=== PATIENT | male | born 1990 | race Caucasian/White ===

== ENCOUNTER 2018-09-29 11:26 | Inpatient (IN) | payer MEDICAID ==
[~2018-09-29] VITALS: Ht 182.9 cm; Wt 79.4 kg
[2018-09-29] MEDS ORDERED: DIVA250T45 PO (11:57)
[2018-09-29] MEDS ORDERED: HALO1 PO (11:57)
[2018-09-29 12:18] LABS: BASOPHILS % (AUTO) 0.6 % (0.0-2.0); EOSINOPHILS % (AUTO) 0.3 % (1.0-6.0); HEMATOCRIT 40.8 % (41-53); HEMOGLOBIN 14.1 g/dL (13.5-17.5); LYMPHOCYTES # (AUTO) 1.7 K/uL (1.0-4.8); LYMPHOCYTES % (AUTO) 18.8 % (22.0-44.0); MEAN CORPUSCULAR HEMOGLOBIN 30.7 pg (26.0-34.0); MEAN CORPUSCULAR HGB CONC 34.7 G/dL (31.0-37.0); MEAN CORPUSCULAR VOLUME 89 fL (80-100); MONOCYTES # (AUTO) 1.3 K/uL (0.1-1.0); MONOCYTES % (AUTO) 13.8 % (2.0-9.0); NEUTROPHILS # (AUTO) 6.1 K/uL (1.8-7.7); NEUTROPHILS % (AUTO) 66.5 % (40.0-70.0); PLATELET COUNT (AUTO) 184 K/uL (150-450); RED CELL DISTRIBUTION WIDTH 13.4 % (11.5-14.5)
[2018-09-29] MEDS ORDERED: DiphenhydrAMINE HCL 50 MG/ML VIAL ONE (12:19)
[2018-09-29] MEDS ORDERED: LORazepam 2 MG/ML VIAL ONE (12:19)
[2018-09-29] MEDS ORDERED: HALOPERIDOL LACTATE 5 MG/ML VIAL ONE (12:19)
[2018-09-29 12:24] LABS: ANION GAP 10 mmol/L (8-16); CALCIUM, TOTAL 8.8 mg/dL (8.8-10.5); CARBON DIOXIDE 27 mmol/L (22-29); CHLORIDE 106 mmol/L (98-107); CREATININE 0.83 mg/dL (0.60-1.30); GLOMERULAR FILTR. RATE CALC > 60 mL/min (>60); GLUCOSE,RANDOM 83 mg/dL (70-110); POTASSIUM 4.1 mmol/L (3.5-5.1); SODIUM SERUM 143 mmol/L (136-145); UREA NITROGEN, BLOOD 17 mg/dL (7-18)
[2018-09-29 12:29] LABS: ALANINE AMINOTRANSFERASE 41 U/L (12-78); ALBUMIN 3.9 g/dL (3.4-5.0); ALKALINE PHOSPHATASE 60 U/L (46-116); ASPARTATE AMINOTRANSFERASE 28 U/L (15-37); BILIRUBIN,TOTAL 0.6 mg/dL (0.1-1.0); TOTAL PROTEIN, SERUM 7.3 g/dL (6.4-8.2)
[2018-09-29] MEDS ORDERED: HALOPERIDOL LACTATE 5 MG/ML VIAL IM ONE (12:30)
[2018-09-29] MEDS ORDERED: LORazepam 2 MG/ML VIAL IM ONE (12:30)
[2018-09-29] MEDS ORDERED: DiphenhydrAMINE HCL 50 MG/ML VIAL IM ONE (12:30)
[2018-09-29] MEDS ORDERED: IBUPROFEN 400 MG TABLET PO PRN (14:15)
[2018-09-29] MEDS ORDERED: ACETAMINOPHEN 325 MG TABLET PO PRN (14:15)
[2018-09-29] MEDS: HALOPERIDOL 5 MG TABLET PO PRN (16:54)
[2018-09-29] MEDS: LORazepam 2 MG TABLET PO PRN (16:54)
[2018-09-29 16:57] VITALS: BP 110/75
[2018-09-29] MEDS ORDERED: NICOTINE 14 MG/24 HOUR PATCH TD PRN (17:45)
[2018-09-29] MEDS ORDERED: MAG HYDROX/AL HYDROX/SIMETH ES 30 ML SUSPENSION UDCUP PO PRN (17:45)
[2018-09-29] MEDS ORDERED: CloNIDine HCL 0.1 MG TABLET PO PRN (17:45)
[2018-09-29] MEDS ORDERED: MAGNESIUM HYDROXIDE SUSPENSION 30 ML UDCUP PO PRN (17:45)
[2018-09-29] MEDS ORDERED: DOCUSATE SODIUM 100 MG CAPSULE PO PRN (17:45)
[2018-09-29] MEDS ORDERED: ONDANSETRON HCL 4 MG TABLET PO PRN (17:45)
[2018-09-29] MEDS ORDERED: ALBUTEROL SULFATE HFA 90 MCG/PUFF 8 GM INHALER IH PRN (17:45)
[2018-09-29] MEDS ORDERED: GuaiFENesin/D-METHORPHAN [SUGAR-FREE] 200-20MG/10 ML SYRUP UDCUP PO PRN (17:45)
[2018-09-29] MEDS ORDERED: LOPERAMIDE HCL 2 MG CAPSULE PO PRN (17:45)
[2018-09-29] MEDS ORDERED: PETROLATUM,WHITE 71 GM JELLY TP PRN (17:45)
[2018-09-30 01:21] VITALS: BP 118/73
[2018-09-30 08:11] VITALS: BP 117/74
[2018-09-30 08:35] LABS: BASOPHILS % (AUTO) 0.7 % (0.0-2.0); EOSINOPHILS % (AUTO) 2.1 % (1.0-6.0); HEMATOCRIT 43.5 % (41-53); HEMOGLOBIN 15.1 g/dL (13.5-17.5); LYMPHOCYTES # (AUTO) 1.5 K/uL (1.0-4.8); LYMPHOCYTES % (AUTO) 24.8 % (22.0-44.0); MEAN CORPUSCULAR HEMOGLOBIN 30.9 pg (26.0-34.0); MEAN CORPUSCULAR HGB CONC 34.6 G/dL (31.0-37.0); MEAN CORPUSCULAR VOLUME 89 fL (80-100); MONOCYTES # (AUTO) 0.8 K/uL (0.1-1.0); MONOCYTES % (AUTO) 13.1 % (2.0-9.0); NEUTROPHILS # (AUTO) 3.6 K/uL (1.8-7.7); NEUTROPHILS % (AUTO) 59.3 % (40.0-70.0); PLATELET COUNT (AUTO) 150 K/uL (150-450); RED BLOOD CELL COUNT(AUTO) 4.88 MIL/uL (4.50-5.90); RED CELL DISTRIBUTION WIDTH 13.4 % (11.5-14.5)
[2018-09-30 08:43] LABS: HEMOGLOBIN A1C 4.9 % (4.5-6.2)
[2018-09-30 09:27] LABS: ALANINE AMINOTRANSFERASE 48 U/L (12-78); ALBUMIN 4.1 g/dL (3.4-5.0); ALKALINE PHOSPHATASE 64 U/L (46-116); ANION GAP 6 mmol/L (8-16); ASPARTATE AMINOTRANSFERASE 58 U/L (15-37); BILIRUBIN,TOTAL 0.4 mg/dL (0.1-1.0); CALCIUM, TOTAL 9.3 mg/dL (8.8-10.5); CARBON DIOXIDE 30 mmol/L (22-29); CHLORIDE 105 mmol/L (98-107); CHOL/HDL RATIO 2.1 (4.2-7.3); CHOLESTEROL 150 mg/dL (131-200); CREATININE 0.84 mg/dL (0.60-1.30); GLOMERULAR FILTR. RATE CALC > 60 mL/min (>60); GLUCOSE,RANDOM 99 mg/dL (70-110); HDL CHOLESTEROL 72 mg/dL (40-60); LDL CHOL (CALC.) 63 mg/dL (0-130); POTASSIUM 4.8 mmol/L (3.5-5.1); SODIUM SERUM 141 mmol/L (136-145); THYROID STIMULATING HORMONE 2.23 uIU/mL (0.36-3.74); TOTAL PROTEIN, SERUM 7.5 g/dL (6.4-8.2); TRIGLYCERIDES 73 mg/dL (15-150); UREA NITROGEN, BLOOD 19 mg/dL (7-18)
[2018-09-30] MEDS: OLANZapine 5 MG TABLET PO SCH ×2 (10:15→20:21)
[2018-09-30] MEDS: DIVALPROEX SODIUM 500 MG DR TABLET PO SCH ×2 (10:15→20:21)
[2018-09-30] MEDS: LORazepam 2 MG TABLET PO PRN ×2 (11:02→17:28)
[2018-09-30] MEDS: HALOPERIDOL 5 MG TABLET PO PRN ×2 (11:02→17:28)
[2018-09-30 16:00] VITALS: BP 112/66
[2018-09-30] MEDS: ZOLPIDEM TARTRATE 10 MG TABLET PO PRN (22:41)
[2018-10-01 01:34] VITALS: BP 117/73
[2018-10-01 08:06] VITALS: BP 118/63
[2018-10-01] MEDS: OLANZapine 5 MG TABLET PO SCH ×2 (08:45→20:50)
[2018-10-01] MEDS: LORazepam 2 MG TABLET PO PRN ×3 (08:45→20:50)
[2018-10-01] MEDS: DIVALPROEX SODIUM 500 MG DR TABLET PO SCH ×2 (08:45→20:50)
[2018-10-01] MEDS: HALOPERIDOL 5 MG TABLET PO PRN (16:11)
[2018-10-01 17:09] VITALS: BP 112/61
[2018-10-01] MEDS: ZOLPIDEM TARTRATE 10 MG TABLET PO PRN (20:50)
[2018-10-02 03:05] VITALS: BP 111/73
[2018-10-02 08:00] VITALS: BP 134/80
[2018-10-02] MEDS: OLANZapine 5 MG TABLET PO SCH ×2 (08:39→20:12)
[2018-10-02] MEDS: LORazepam 2 MG TABLET PO PRN ×2 (08:39→16:40)
[2018-10-02] MEDS: DIVALPROEX SODIUM 500 MG DR TABLET PO SCH ×2 (08:39→20:12)
[2018-10-02 16:00] VITALS: BP 130/86
[2018-10-02] MEDS ORDERED: HALOPERIDOL LACTATE 5 MG/ML VIAL IM ONE (19:15)
[2018-10-02] MEDS ORDERED: DiphenhydrAMINE HCL 50 MG/ML VIAL IM ONE (19:15)
[2018-10-02] MEDS ORDERED: LORazepam 2 MG/ML VIAL IM ONE (19:15)
[2018-10-03 05:18] VITALS: BP 125/77
[2018-10-03 08:05] VITALS: BP 110/71
[2018-10-03] MEDS: OLANZapine 5 MG TABLET PO SCH ×2 (08:16→20:13)
[2018-10-03] MEDS: DIVALPROEX SODIUM 500 MG DR TABLET PO SCH ×2 (08:16→20:13)
[2018-10-03 16:00] VITALS: BP 114/72
[2018-10-03] MEDS: LORazepam 2 MG TABLET PO PRN (16:13)
[2018-10-03] MEDS: HALOPERIDOL 5 MG TABLET PO PRN (16:13)
[2018-10-04] MEDS: OLANZapine 5 MG TABLET PO SCH ×2 (08:32→20:30)
[2018-10-04] MEDS: DIVALPROEX SODIUM 500 MG DR TABLET PO SCH ×2 (08:32→20:30)
[2018-10-04] MEDS: LORazepam 2 MG TABLET PO PRN ×3 (08:32→16:53)
[2018-10-04 08:38] VITALS: BP 123/76
[2018-10-04] MEDS: HALOPERIDOL 5 MG TABLET PO PRN ×2 (12:40→16:53)
[2018-10-04 16:37] VITALS: BP 115/60
[2018-10-04] MEDS: ZOLPIDEM TARTRATE 10 MG TABLET PO PRN (20:30)
[2018-10-05 06:27] VITALS: BP 118/78
[2018-10-05] MEDS: OLANZapine 5 MG TABLET PO SCH ×2 (08:06→21:01)
[2018-10-05] MEDS: DIVALPROEX SODIUM 500 MG DR TABLET PO SCH ×2 (08:06→21:01)
[2018-10-05] MEDS: HALOPERIDOL 5 MG TABLET PO PRN (08:06)
[2018-10-05] MEDS: LORazepam 2 MG TABLET PO PRN ×2 (08:06→21:01)
[2018-10-05 08:07] VITALS: BP 114/67
[2018-10-05 16:00] VITALS: BP 123/78
[2018-10-05] MEDS: ZOLPIDEM TARTRATE 10 MG TABLET PO PRN (21:02)
[2018-10-06 06:23] VITALS: BP 125/82
[2018-10-06 08:06] VITALS: BP 116/74
[2018-10-06] MEDS: OLANZapine 5 MG TABLET PO SCH ×2 (09:33→20:20)
[2018-10-06] MEDS: DIVALPROEX SODIUM 500 MG DR TABLET PO SCH ×2 (09:33→20:20)
[2018-10-06] MEDS: HALOPERIDOL 5 MG TABLET PO PRN (13:52)
[2018-10-06] MEDS: LORazepam 2 MG TABLET PO PRN ×2 (13:52→18:00)
[2018-10-06 16:00] VITALS: BP 120/73
[2018-10-07 02:08] VITALS: BP 122/75
[2018-10-07 08:06] VITALS: BP 112/74
[2018-10-07] MEDS: DIVALPROEX SODIUM 500 MG DR TABLET PO SCH ×2 (08:10→20:27)
[2018-10-07] MEDS: OLANZapine 5 MG TABLET PO SCH ×2 (08:10→20:27)
[2018-10-07] MEDS: HALOPERIDOL 5 MG TABLET PO PRN (08:10)
[2018-10-07] MEDS: LORazepam 2 MG TABLET PO PRN ×2 (09:57→16:10)
[2018-10-07 16:08] VITALS: BP 122/78
[2018-10-07] MEDS: ZOLPIDEM TARTRATE 10 MG TABLET PO PRN (20:27)
[2018-10-08 05:24] VITALS: BP 119/75
[2018-10-08] MEDS: LORazepam 2 MG TABLET PO PRN ×2 (08:31→17:40)
[2018-10-08] MEDS: HALOPERIDOL 5 MG TABLET PO PRN ×2 (08:31→17:40)
[2018-10-08] MEDS: DIVALPROEX SODIUM 500 MG DR TABLET PO SCH ×2 (08:31→20:33)
[2018-10-08] MEDS: OLANZapine 5 MG TABLET PO SCH ×2 (08:31→20:32)
[2018-10-08 08:54] VITALS: BP 114/70
[2018-10-08 17:32] VITALS: BP 109/65
[2018-10-09 04:17] VITALS: BP 108/71
[2018-10-09 08:14] VITALS: BP 108/75
[2018-10-09] MEDS: DIVALPROEX SODIUM 500 MG DR TABLET PO SCH ×2 (08:14→20:18)
[2018-10-09] MEDS: HALOPERIDOL 5 MG TABLET PO PRN (08:14)
[2018-10-09] MEDS: LORazepam 2 MG TABLET PO PRN (08:14)
[2018-10-09] MEDS: OLANZapine 5 MG TABLET PO SCH ×2 (08:14→20:18)
[2018-10-09 16:21] VITALS: BP 104/62
[2018-10-10 02:56] VITALS: BP 115/68
[2018-10-10 08:05] VITALS: BP 117/72
[2018-10-10] MEDS: LORazepam 2 MG TABLET PO PRN ×2 (08:23→16:13)
[2018-10-10] MEDS: OLANZapine 5 MG TABLET PO SCH ×2 (08:23→20:29)
[2018-10-10] MEDS: DIVALPROEX SODIUM 500 MG DR TABLET PO SCH ×2 (08:23→20:29)
[2018-10-10 16:15] VITALS: BP 110/64
[2018-10-10] MEDS: ZOLPIDEM TARTRATE 10 MG TABLET PO PRN (20:29)
[2018-10-11 04:19] VITALS: BP 109/69
[2018-10-11 08:07] VITALS: BP 110/70
[2018-10-11] MEDS: OLANZapine 5 MG TABLET PO SCH (08:17)
[2018-10-11] MEDS: DIVALPROEX SODIUM 500 MG DR TABLET PO SCH (08:17)
[2018-10-11] MEDS ORDERED: VALP250C PO (09:21)
[2018-10-11] MEDS ORDERED: DIVA250T4 PO (09:24)
[2018-10-11] MEDS ORDERED: OLAN5TAB2 PO (09:26)
== END 2018-10-11 13:20 | disposition home or self-care (01) | DRG 750 ==
LOC: EMS 11:27 → B3A 15:14
PROVIDERS: ADMIT Psychiatry & Neurology Psychiatry; ATTEND Psychiatry & Neurology Psychiatry
DX: F25.0 Schizoaffective disorder, bipolar type (principal); R74.0 Nonspecific elevation of levels of transaminase and lactic acid dehydrogenase [LDH]; F10.10 Alcohol abuse, uncomplicated; F17.200 Nicotine dependence, unspecified, uncomplicated; F15.90 Other stimulant use, unspecified, uncomplicated; F19.10 Other psychoactive substance abuse, uncomplicated; F41.9 Anxiety disorder, unspecified; Z71.6 Tobacco abuse counseling; Z71.41 Alcohol abuse counseling and surveillance of alcoholic; Z59.0 Homelessness; Z71.51 Drug abuse counseling and surveillance of drug abuser
CPT/HCPCS: 83036; 84443; 96372; 99291; G0480; J1200; J1630; J2060